=== PATIENT | male | born 1995 | race Caucasian/White ===

== ENCOUNTER 2019-05-07 03:27 | Emergency (ER) | payer OTHER ==
[~2019-05-07] VITALS: Ht 170.2 cm; Wt 59.0 kg
[2019-05-07 03:27] VITALS: BP 143/87
--- NOTE | 2019-05-07 03:27 | NUR ---
PT CELESTE ALS. TAKEN TO BED 7
--- NOTE | 2019-05-07 03:32 | NUR ---
RECIVED REPORT FROM [facility].
--- NOTE | 2019-05-07 03:37 | NUR ---
PT BIBA ALS FOR ALOC AND POSSIBLE DRUG INGESTION. NARCAN 0.5 GIVEN IN EN ROUTE TO HOSPITAL. PT RESPIRATIONS ARE EVEN AND UNLABORED. SKIN IS WARM AND DRY TO TOUCH. NO N/V/D. AFEBRILE. PT AXO X4. PT DENIES TAKING DRUGS BUT ADMITS TO DRINKING X2 BEERS. 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 "I DON'T REALLY NEED HELP I'M JUST SLEEPY AND THAT'S WHY I COULD'NT WAKE UP." PT DENIES PAIN 0/10. WILL CONTINUE TO MONITOR. MEDHX: NONE ALLERGIES: NONE
--- NOTE | 2019-05-07 03:44 | NUR ---
Dr. Maldonado examining patient.
--- NOTE | 2019-05-07 03:46 | NUR ---
Gary esquivel in [facility] - 05/07/19 at [email or web address] LAUREN AT [facility].
--- NOTE | 2019-05-07 04:16 | NUR ---
PT RESTING IN BED EYES CLOSED. RESPIRATIONS ARE EVEN AND UNLABORED. O2SAT @ 96% ON RA. SKIN IS WARM AND DRY TO TOUCH. PT EASILY AROUSABLE AND DENIES ANY C/O PAIN AT THIS TIME. WILL CONTINUE TO MONITOR.
--- NOTE | 2019-05-07 04:33 | NUR ---
PT AWAKE AND SPEAKING TO FAMILY AT BEDSIDE.
--- NOTE | 2019-05-07 05:17 | NUR ---
DR LAUREN AT BEDSIDE.
[2019-05-07 05:54] VITALS: BP 123/70
--- NOTE | 2019-05-07 05:55 | NUR ---
Patient discharged with v/s stable. Written and verbal after care instructions given and explained. Patient verbalized understanding. Ambulatory with steady gait. All questions addressed prior to discharge. Advised to follow up with PMD.
== END 2019-05-07 05:55 | disposition home or self-care (01) ==
LOC: MED 03:27
DX: R40.2410 Glasgow coma scale score 13-15, unspecified time (principal); F11.10 Opioid abuse, uncomplicated
CPT/HCPCS: 99283